=== PATIENT | female | born 2000 | race African-American/Black ===

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

== ENCOUNTER 2020-09-29 12:06 | Emergency (ER) | payer OTHER ==
[2020-09-29 12:27] VITALS: BP 116/77; PULSE 70; BMI 33.4
[2020-09-29] MEDS ORDERED: KETOROLAC TROMETHAMINE 30 MG/1 ML VIAL IM ONE (13:24)
[2020-09-29] MEDS ORDERED: KETOROLAC TROMETHAMINE 30 MG/1 ML VIAL ONE (13:26)
== END 2020-09-29 13:34 | disposition home or self-care (01) ==
LOC: JERFT 12:06
PROC: 3E0233Z Introduction of Anti-inflammatory into Muscle, Percutaneous Approach (ICD-10-PCS; principal; 2020-09-29)
DX: M79.606 Pain in leg, unspecified (principal)
CPT/HCPCS: 99284-25

== ENCOUNTER 2022-02-20 19:37 | Emergency (ER) | payer OTHER ==
[2022-02-20 19:47] VITALS: BP 119/85; PULSE 64; RESP 20; TEMP 98.1; BMI 40.4
[2022-02-20 21:15] LABS: BASO % 1.1 % (0-2.0); EOS % 1.6 % (0-4.5); HEMATOCRIT 37.2 % (32.4-45.2); HEMOGLOBIN 12.5 GM/dL (10.7-15.3); MCHC 33.7 g/dl (32.0-36.0); MEAN CELL VOLUME 94.9 fl (80-96); MEAN PLT VOLUME 8.3 fl (7.5-11.1); MONO % 6.8 % (3.8-10.2); NEUT % 45.5 % (42.8-82.8); PLATELET COUNT 254 10^3/uL (134-434); RBC 3.92 M/mm3 (3.60-5.2); RDW 13.9 % (11.6-15.6); WHITE BLOOD COUNT 3.6 K/mm3 (4.0-10.0)
[2022-02-20 21:38] LABS: ALBUMIN 3.6 g/dl (3.4-5.0); BLOOD UREA NITROGEN 7.9 mg/dL (7-18)
[2022-02-20 21:41] LABS: CREATININE 0.7 mg/dL (0.55-1.3)
[2022-02-20 21:43] LABS: BILIRUBIN,TOTAL 0.4 mg/dL (0.2-1); TOT PROT 7.7 g/dl (6.4-8.2)
== END 2022-02-20 21:53 | disposition home or self-care (01) ==
LOC: JER 19:37
DX: R07.1 Chest pain on breathing (principal)
CPT/HCPCS: 36415; 71046-TC-FY; 80053; 84484; 84703; 85025; 93005; 93010; 99285-25

== ENCOUNTER 2022-08-17 14:53 | Emergency (ER) | payer OTHER ==
[2022-08-17] MEDS ORDERED: ACETAMINOPHEN 500 MG TABLET (FP) PO ONE (15:03)
[2022-08-17 15:05] VITALS: BP 126/75; PULSE 121; RESP 20; TEMP 102.4; BMI 42.5
== END 2022-08-17 15:00 | disposition left against medical advice (07) ==
LOC: JERFT 14:53
DX: R50.9 Fever, unspecified (principal); J02.9 Acute pharyngitis, unspecified
CPT/HCPCS: 0241U-QW; 99281-25

== ENCOUNTER 2023-04-27 03:08 | Emergency (ER) | payer OTHER ==
[2023-04-27 03:17] VITALS: BP 117/79; PULSE 84; RESP 20; TEMP 98.9; BMI 41.0
[2023-04-27 03:53] LABS: PH,URINE 6.5 (5.0-8.0); URINE APPEARANCE CLEAR; URINE BILIRUBIN NEGATIVE (NEGATIVE); URINE COLOR YELLOW; URINE GLUCOSE (UA) NEGATIVE (NEGATIVE); URINE KETONE NEGATIVE (NEGATIVE); URINE LEUK ESTERASE NEGATIVE (NEGATIVE); URINE NITRITE NEGATIVE (NEGATIVE); URINE PROTEIN NEGATIVE (NEGATIVE)
[2023-04-27 04:15] LABS: HCG,QUALITATIVE URINE Negative
[2023-04-27 04:38] LABS: SYPHILIS W/ RPR CONF NON-REACTIVE (NONREACTIVE)
[2023-04-27 06:58] LABS: HIV INTERPRETATION NEGATIVE (NEGATIVE)
== END 2023-04-27 05:11 | disposition home or self-care (01) ==
LOC: JER 03:08
DX: Z11.3 Encounter for screening for infections with a predominantly sexual mode of transmission (principal); R10.30 Lower abdominal pain, unspecified
CPT/HCPCS: 36415; 81003; 84703; 86704; 86780; 86803; 87086; 87340; 87389; 87491; 87517; 87591; 99283-25

== ENCOUNTER 2024-07-09 02:19 | Emergency (ER) | payer OTHER ==
[2024-07-09 02:25] VITALS: BP 116/80; PULSE 74; RESP 20; TEMP 97.9; BMI 44.1
[2024-07-09] MEDS ORDERED: ACETAMINOPHEN 325 MG TABLET (FP) PO ONE (02:55)
== END 2024-07-09 02:56 | disposition home or self-care (01) ==
LOC: JER 02:19
DX: H92.01 Otalgia, right ear (principal); Z48.02 Encounter for removal of sutures
CPT/HCPCS: 99282-25